=== PATIENT | female | born 1995 | race Caucasian/White ===

== ENCOUNTER 2018-04-11 13:27 | Emergency (ER) | payer BC ==
--- NOTE | 2018-04-11 13:59 | EDPHY ---
H & P Stated Complaint: n/v x12hr, appears anxious Time Seen by Provider: 04/11/18 13:58 - Personal History LMP (Females 10-55): IUD In Place Current Tetanus/Diphtheria Vaccine: No Current Tetanus Diphtheria and Acellular Pertussis (TDAP): No - Medical/Surgical History Hx Asthma: No Hx Chronic Respiratory Disease: No Hx Diabetes: No Hx Cardiac Disease: No Hx Renal Disease: No Hx Cirrhosis: No Hx Alcoholism: No Hx HIV/AIDS: No Hx Splenectomy or Spleen Trauma: No Other PMH: none - Social History Smoking Status: Never smoked Constitutional: Initial Vital Signs Temperature (C) 36.5 C 04/11/18 13:35 Heart Rate 73 04/11/18 13:35 Respiratory Rate 20 04/11/18 13:35 Blood Pressure 105/77 04/11/18 13:35 O2 Sat (%) 98 04/11/18 13:35 O2 Delivery Mode Room Air Allergies/Adverse Reactions: No Known Allergies Allergy (Unverified 04/11/18 13:34) Home Medications: Medication Instructions Recorded NK [No Known Home Meds] 04/11/18 Medical Decision Making ED Course/Re-evaluation: CHIEF COMPLAINT: HISTORY OF PRESENT ILLNESS: must have 4 elements: Location, Quality, Severity , Duration, Timing, Context, Modifying Factors, Associated Signs and Symptoms REVIEW OF SYSTEMS: A comprehensive 10 system review of systems is otherwise negative aside from elements mentioned in the history of present illness and medical decision making. PHYSICAL EXAM: HR, BP, O2 Sat, RR. Temp noted General Appearance: Alert, well hydrated, appropriate, and non-toxic appearing. Head: Atraumatic without scalp tenderness or obvious injury Eyes: Pupils equal, round, reactive to light and accommodation, EOMI, no trauma , no injection. Ears: Clear bilaterally, no perforation, normal landmarks Nose: Atraumatic, no rhinorrhea, clear. Throat: There is no erythema or exudates, no lesions, normal tonsils, mucus membranes moist. Neck: Supple, 2+ carotid upstroke, nontender, no lymphadenopathy. Respiratory: No retractions, no distress, no wheezes, and no accessory muscle use. Lungs are clear to auscultation bilaterally. Cardiovascular: Regular rate and rhythm, no murmurs, rubs, or gallops. Bilateral carotid, radial, dorsalis pedis, and posterior tibial pulses intact. Good capillary refill all extremities. Gastrointestinal: Abdomen is soft, nontender, non-distended, no masses, no rebound, no guarding, no peritoneal signs. Musculoskeletal: Normal active ROM of all extremities, atraumatic. Neurological: Alert, appropriate, and interactive. The patient has normal DTRs and non-focal cranial nerves, motor, sensory, and cerebellar exam. Skin: No rashes, good turgor, no nodules on palpation. Past medical history: Past surgical history: Family history: Social history: DIAGNOSTICS/PROCEDURES/CRITICAL CARE TIME: DIFFERENTIAL DIAGNOSIS: MEDICAL DECISION MAKING: Departure - Departure Condition: Good Referrals: NONE *PRIMARY CARE P,. [Primary Care Provider] - As per Instructions
[2018-04-11] MEDS ORDERED: NS 1,000 ML IV ONE ×2 (14:02)
[2018-04-11] MEDS ORDERED: ONDANSETRON 4 MG/2 ML VIAL ONE (14:15)
[2018-04-11] MEDS ORDERED: ONDANSETRON 4 MG/2 ML VIAL IVP ONE (14:16)
[2018-04-11 14:36] LABS: PLATELET COUNT 211 10^3/uL (150-400)
--- NOTE | 2018-04-11 15:55 | EDPHY ---
H & P Stated Complaint: n/v x12hr, appears anxious Time Seen by Provider: 04/11/18 13:58 HPI/ROS: CHIEF COMPLAINT: Intractable vomiting since midnight HISTORY OF PRESENT ILLNESS: 22-year-old immunocompetent female with no history of abdominal surgeries complaining of intractable vomiting since midnight. No abdominal pain. No fever no chills. No chest pain. No urinary abnormality. No flank pain. PRIMARY CARE PROVIDER: REVIEW OF SYSTEMS: 10 systems reviewed and negative with the exception of the elements mentioned in the history of present illness PAST MEDICAL & SURGICAL HISTORY: No pertinent medical or surgical history SOCIAL HISTORY: Student PHYSICAL EXAM (Prior to examination, patient consented to physical exam, hands were washed and my usual and customary physical exam procedures followed) 1) GENERAL: Well-developed, well-nourished, alert and oriented. Appears anxious , retching 2) HEAD: Normocephalic, atraumatic 3) HEENT: Pupils equal, round, reactive to light bilaterally. Sclera anicteric. Nasopharynx, oropharynx, clear, no lesions. Dry mucous membranes. 4) NECK: Full range of motion, no meningeal signs. 5) LUNGS: Clear auscultation bilaterally, no wheezes, no rhonchi, no retractions. 6) HEART: Regular rate and rhythm, no murmur, no heave, no gallop. 7) ABDOMEN: No guarding, no rebound, no focal tenderness, negative McBurney's, negative Chaudhry's, negative Rovsing's, negative peritoneal sign, I am unable to elicit any abdominal pain on exam 8) MUSCULOSKELETAL: Moving all extremities, no focal areas of tenderness, no obvious trauma. No peripheral edema or discoloration. 9) BACK: No CVA tenderness, no midline vertebral tenderness, no fluctuance, no step-off, no obvious trauma, no visual or palpable abnormality. 10) SKIN: No rash, no petechiae. 11) Psychiatric: Patient is oriented X 3, there is no agitation. DIFFERENTIAL DIAGNOSIS: My differential diagnosis includes, but is not limited to, acute appendicitis, acute cholecystitis, bowel obstruction, acute pancreatitis, ovarian torsion, ectopic , gastritis and urinary tract infection. The patient understands that this diagnosis is provisional and can never be 100% accurate. This is a partial list of diagnoses considered. These considerations are based on history, physical exam, past history and reassessment. - Personal History LMP (Females 10-55): IUD In Place Current Tetanus/Diphtheria Vaccine: No Current Tetanus Diphtheria and Acellular Pertussis (TDAP): No - Medical/Surgical History Hx Asthma: No Hx Chronic Respiratory Disease: No Hx Diabetes: No Hx Cardiac Disease: No Hx Renal Disease: No Hx Cirrhosis: No Hx Alcoholism: No Hx HIV/AIDS: No Hx Splenectomy or Spleen Trauma: No Other PMH: none - Social History Smoking Status: Never smoked Constitutional: Initial Vital Signs Temperature (C) 36.5 C 04/11/18 13:35 Heart Rate 73 04/11/18 13:35 Respiratory Rate 20 04/11/18 13:35 Blood Pressure 105/77 04/11/18 13:35 O2 Sat (%) 98 04/11/18 13:35 O2 Delivery Mode Room Air Allergies/Adverse Reactions: No Known Allergies Allergy (Unverified 04/11/18 13:34) Home Medications: Medication Instructions Recorded Ondansetron Odt [Zofran Odt] 4 mg PO Q4PRN PRN #10 tab 04/11/18 Medical Decision Making ED Course/Re-evaluation: 3:53 p.m. re-evaluation. Patient is smiling, feeling improvement after IV fluids, Zofran. Re-examined her abdomen which is soft no guarding no rebound. Doubt acute surgical abdominal pathology. I think the patient can be discharged home. I Do not think that imaging studies indicated at this time. Given my usual and customary abdominal precautions instructions. Patient feels comfortable being discharged. All questions and concerns addressed by myself. Care of patient under supervision of secondary supervising physician Dr Miranda with whom I discussed case. - Data Points Laboratory Results: Laboratory Results 04/11/18 14:15 04/11/18 14:15 04/11/18 04/11/18 04/11/18 14:15 14:15 14:15 WBC 10.48 10^3/uL H 10^3/uL (3.80-9.50) RBC 4.95 10^6/uL 10^6/uL (4.18-5.33) Hgb 14.2 g/dL g/dL (12.6-16.3) Hct 42.8 % % (38.0-47.0) MCV 86.5 fL fL (81.5-99.8) MCH 28.7 pg pg (27.9-34.1) MCHC 33.2 g/dL g/dL (32.4-36.7) RDW 13.4 % % (11.5-15.2) Plt Count 211 10^3/uL 10^3/uL (150-400) MPV 9.9 fL fL (8.7-11.7) Neut % (Auto) 91.0 % H % (39.3-74.2) Lymph % (Auto) 6.6 % L % (15.0-45.0) Travis % (Auto) 2.0 % L % (4.5-13.0) Eos % (Auto) 0.0 % L % (0.6-7.6) Baso % (Auto) 0.1 % L % (0.3-1.7) Nucleat RBC Rel Count 0.0 % % (0.0-0.2) Absolute Neuts (auto) 9.54 10^3/uL H 10^3/uL (1.70-6.50) Absolute Lymphs (auto) 0.69 10^3/uL L 10^3/uL (1.00-3.00) Absolute Monos (auto) 0.21 10^3/uL L 10^3/uL (0.30-0.80) Absolute Eos (auto) 0.00 10^3/uL L 10^3/uL (0.03-0.40) Absolute Basos (auto) 0.01 10^3/uL L 10^3/uL (0.02-0.10) Absolute Nucleated RBC 0.00 10^3/uL 10^3/uL (0-0.01) Immature Gran % 0.3 % % (0.0-1.1) Immature Gran # 0.03 10^3/uL 10^3/uL (0.00-0.10) Sodium 141 mEq/L mEq/L (135-145) Potassium 4.1 mEq/L mEq/L (3.5-5.2) Chloride 108 mEq/L mEq/L (97-110) Carbon Dioxide 17 mEq/l L mEq/l (22-31) Anion Gap 16 mEq/L H mEq/L (6-14) BUN 9 mg/dL mg/dL (7-23) Creatinine 0.6 mg/dL mg/dL (0.6-1.0) Estimated GFR > 60 Glucose 108 mg/dL H mg/dL (70-100) Calcium 10.1 mg/dL mg/dL (8.5-10.4) Total Bilirubin 0.9 mg/dL mg/dL (0.1-1.4) Conjugated Bilirubin 0.3 mg/dL mg/dL (0.0-0.5) Unconjugated Bilirubin 0.6 mg/dL mg/dL (0.0-1.1) AST 31 IU/L IU/L (14-46) ALT 22 IU/L IU/L (9-52) Alkaline Phosphatase 78 IU/L IU/L (38-126) Total Protein 8.4 g/dL H g/dL (6.3-8.2) Albumin 5.2 g/dL H g/dL (3.5-5.0) Lipase 43 IU/L IU/L (23-300) Beta HCG, Qual NEGATIVE Medications Given: Discontinued Medications Sodium Chloride (Ns) 1,000 mls @ 0 mls/hr IV EDNOW ONE; Wide Open PRN Reason: Protocol Stop: 04/11/18 14:03 Last Admin: 04/11/18 14:18 Dose: 1,000 mls Sodium Chloride (Ns) 1,000 mls @ 0 mls/hr IV EDNOW ONE; Wide Open PRN Reason: Protocol Stop: 04/11/18 14:03 Last Admin: 04/11/18 14:18 Dose: 1,000 mls Ondansetron HCl (Zofran) 4 mg IVP EDNOW ONE Stop: 04/11/18 14:17 Last Admin: 04/11/18 14:18 Dose: 4 mg Departure - Departure Disposition: Home, Routine, Self-Care Clinical Impression: Nausea & vomiting Condition: Good Instructions: Acute Nausea and Vomiting (ED) Additional Instructions: Seek immediate medical attention if you develop new or worsening symptoms, if you develop fevers, chills, inability to tolerate oral intake or any other symptoms that concerns you. Eat bland food such as Jell-O and broth for the next 24 hr. Referrals: [facility],. [Clinic] - 1-2 days without fail Prescriptions: Ondansetron Odt [Zofran Odt] 4 mg PO Q4PRN PRN #10 tab PRN Reason: Nausea
[2018-04-11 16:09] VITALS: BP 104/76
== END 2018-04-11 16:08 | disposition home or self-care (01) ==
DX: R11.2 Nausea with vomiting, unspecified (principal); E86.9 Volume depletion, unspecified; D84.9 Immunodeficiency, unspecified
CPT/HCPCS: 96374; J2405

== ENCOUNTER 2018-04-12 13:37 | Emergency (ER) | payer BC ==
[2018-04-12] MEDS ORDERED: HALOPERIDOL LACT 5 MG/ML INJ IVP ONE (14:12)
[2018-04-12] MEDS ORDERED: NS 1,000 ML IV ONE (14:12)
--- NOTE | 2018-04-12 14:14 | EDPHY ---
H & P Stated Complaint: VOMIT/ CP HER FOR SAME YEST, GOT WORSE THIS AFTERNOON AGAIN - Personal History LMP (Females 10-55): IUD [address] Current Tetanus/Diphtheria Vaccine: No - Medical/Surgical History Hx Asthma: No Hx Chronic Respiratory Disease: No Hx Diabetes: No Hx Cardiac Disease: No Hx Renal Disease: No Hx Cirrhosis: No Hx Alcoholism: No Hx HIV/AIDS: No Hx Splenectomy or Spleen Trauma: No Other PMH: none - Social History Smoking Status: Never smoked Time Seen by Provider: 04/12/18 14:02 HPI/ROS: CHIEF COMPLAINT: Chest pain, vomiting HISTORY OF PRESENT ILLNESS: 22-year-old female generally healthy seen by myself in the ER yesterday for nausea vomiting, resolved after IV fluids and Zofran, returns to the ER. She states this started last evening she had return of multiple episodes of vomiting and retching with development of chest pain. No dyspnea. No back pain. No head injury. REVIEW OF SYSTEMS: 10 systems reviewed and negative with the exception of the elements mentioned in the history of present illness PAST MEDICAL & SURGICAL HISTORY: No pertinent medical or surgical history SOCIAL HISTORY: Daily marijuana use. Positive recent alcohol use preceding symptoms yesterday. PHYSICAL EXAM (Prior to examination, patient consented to physical exam, hands were washed and my usual and customary physical exam procedures followed) 1) GENERAL: Well-developed, well-nourished, alert and oriented. Appears uncomfortable. She is crying, hyperventilating, retching. 2) HEAD: Normocephalic, atraumatic 3) HEENT: Pupils equal, round, reactive to light bilaterally. Sclera anicteric. Nasopharynx, oropharynx, clear, no lesions. Dry mucous membranes. 4) NECK: Full range of motion, no meningeal signs. 5) LUNGS: Clear auscultation bilaterally, no wheezes, no rhonchi, no retractions. 6) HEART: Regular rate and rhythm, no murmur, no heave, no gallop. 7) ABDOMEN: No guarding, no rebound, no focal tenderness, negative McBurney's, negative Chaudhry's, negative Rovsing's, negative peritoneal sign, 8) MUSCULOSKELETAL: Moving all extremities, no focal areas of tenderness, no obvious trauma. No peripheral edema or discoloration. 9) BACK: No CVA tenderness, no midline vertebral tenderness, no fluctuance, no step-off, no obvious trauma, no visual or palpable abnormality. 10) SKIN: No rash, no petechiae. 11) Psychiatric: Patient is oriented X 3, there is no agitation. DIFFERENTIAL DIAGNOSIS: My differential diagnosis includes, but is not limited to, acute appendicitis, cyclic vomiting syndrome, cannabis hyperemesis, acute cholecystitis, bowel obstruction, acute pancreatitis, ovarian torsion, ectopic , gastritis and urinary tract infection. The patient understands that this diagnosis is provisional and can never be 100% accurate. This is a partial list of diagnoses considered. These considerations are based on history, physical exam, past history and reassessment. (Maggi Acharya) Constitutional: Initial Vital Signs Temperature (C) 37.0 C 04/12/18 13:51 Heart Rate 70 04/12/18 13:51 Respiratory Rate 22 H 04/12/18 13:51 Blood Pressure 107/75 04/12/18 13:51 O2 Sat (%) 100 04/12/18 13:51 O2 Delivery Mode Room Air Allergies/Adverse Reactions: No Known Allergies Allergy (Unverified 04/12/18 13:51) Home Medications: Medication Instructions Recorded Ondansetron Odt [Zofran Odt] 4 mg PO Q4PRN PRN #10 tab 04/11/18 Famotidine [Pepcid] 20 mg PO BID #10 tablet 04/12/18 Pantoprazole Sodium [Protonix 40mg 40 mg PO DAILY #30 tab 04/12/18 (RX)] Medical Decision Making - Diagnostics Imaging Results: Images reviewed myself (Maggi Acharya) ED Course/Re-evaluation: The patient was evaluated and managed by the physician field administrative assistant. I have reviewed this chart and I agree with the findings and plan of care as documented , as indicated by my signature. I am the secondary supervising physician. ( Kalli Gloria) 2:13 p.m.: I reviewed the patient's old medical records. She appears uncomfortable at this time. Will obtain diagnostic studies including chest x- ray, laboratory studies as well as administer IV fluids and IV Haldol. Care of patient under supervision of secondary supervising physician Dr Kalli Gloria. 300 p.m.: Re-evaluation after IV Haldol. Patient is sleeping, easily woken, states that she is feeling improvement. Normal retching. She still complains of chest pain. Chest x-ray is negative for pneumothorax or pneumomediastinum. We discussed possibility of esophagitis. Will administer GI cocktail re- evaluated. 3:29 p.m.: Re-evaluation after GI cocktail, asymptomatic at this time stating that GI cocktail provided relief of her symptoms. At this time I think that pulmonary embolus, cardiac etiology less than likely in this patient. We discussed more than likely esophagitis given her repeat episodes of vomiting. Will plan on discharge with Pepcid and proton pump inhibitor. Recommend avoiding alcohol and marijuana as well as is my other usual customary dietary precautions. I recommend follow up with Gastroenterology as she may necessitate upper endoscopic evaluation on a nonemergent basis. I do not think that hospitalization indicated. Have re-evaluated her chest and abdomen at this time her abdomen is soft no guarding no rebound. I do not think that CT imaging the abdomen indicated at this time. Doubt acute surgical abdominal pathology. Doubt acute pancreatitis. Doubt acute cholecystitis. Doubt acute appendicitis. Patient feels comfortable being discharged. All questions and concerns addressed by myself. Patient given my usual and customary discharge precautions and instructions regarding their clinical impression. (Maggi Acharya ) - Data Points Laboratory Results: Laboratory Results 04/12/18 14:28 04/12/18 14:28 Medications Given: Discontinued Medications Al Hydroxide/Mg Hydroxide (Maalox Susp) 30 ml PO ONCE ONE Stop: 04/12/18 15:04 Last Admin: 04/12/18 15:16 Dose: 30 ml Famotidine (Pepcid) 20 mg PO EDNOW ONE Stop: 04/12/18 15:30 Last Admin: 04/12/18 15:32 Dose: 20 mg Haloperidol Lactate (Haldol Injection) 2.5 mg IVP EDNOW ONE Stop: 04/12/18 14:13 Last Admin: 04/12/18 14:32 Dose: 2.5 mg Hyoscyamine Sulfate (Levsin, Hyomax-Sl) 0.25 mg PO ONCE ONE Stop: 04/12/18 15:04 Last Admin: 04/12/18 15:16 Dose: 0.25 mg Sodium Chloride (Ns) 1,000 mls @ 0 mls/hr IV ONCE ONE PRN Reason: Wide Open Stop: 04/12/18 14:13 Last Admin: 04/12/18 14:32 Dose: 1,000 mls Lidocaine (Lidocaine 2% Viscous) 15 ml PO ONCE ONE Stop: 04/12/18 15:04 Last Admin: 04/12/18 15:17 Dose: 15 ml Pantoprazole Sodium (Protonix) 40 mg PO EDNOW ONE Stop: 04/12/18 15:30 Last Admin: 04/12/18 15:32 Dose: 40 mg Departure - Departure Disposition: Home, Routine, Self-Care Clinical Impression: Hypovolemia Vomiting Qualifiers: Vomiting type: unspecified Vomiting Intractability: non-intractable Nausea presence: with nausea Qualified Code(s): R11.2 - Nausea with vomiting, unspecified Condition: Good Instructions: Acute Nausea and Vomiting (ED) Additional Instructions: Seek immediate medical attention if you develop new or worsening symptoms, if you develop fevers, chills, inability to tolerate oral intake or any other symptoms that concerns you. Moderate your alcohol and marijuana use. Eat bland foods. Referrals: Anna Jarvis MD [Medical Doctor] - 2-3 days, call for appt. (Dr. Anna Jarvis is a data integration architect) Stand Alone Forms: School Excuse Prescriptions: Famotidine [Pepcid] 20 mg PO BID #10 tablet Pantoprazole Sodium [Protonix 40mg (RX)] 40 mg PO DAILY #30 tab
[2018-04-12 14:38] LABS: PLATELET COUNT 201 10^3/uL (150-400)
[2018-04-12] MEDS ORDERED: MAG HYDROX/AL HYDROX/SIMETH 30 ML UDCUP PO ONE (15:03)
[2018-04-12] MEDS ORDERED: HYOSCYAMINE SULFATE 0.125 MG TAB PO ONE (15:03)
[2018-04-12] MEDS ORDERED: LIDOCAINE 2% VISCOUS 15 ML UDCUP PO ONE (15:03)
[2018-04-12] MEDS ORDERED: PANTOPRAZOLE SODIUM 40 MG TAB PO ONE (15:29)
[2018-04-12] MEDS ORDERED: FAMOTIDINE 20 MG TAB PO ONE (15:29)
[2018-04-12 15:51] VITALS: BP 108/76
== END 2018-04-12 15:50 | disposition home or self-care (01) ==
DX: E86.1 Hypovolemia (principal)
CPT/HCPCS: 96374; J1630